=== PATIENT | female | born 1945 | race Caucasian/White ===

== ENCOUNTER 2017-06-24 02:55 | Observation (INO) | payer MEDICARE, BC ==
[2017-06-24] MEDS ORDERED: DIAZEPAM INJ 10 MG/2 ML DISP.SYRIN IV ONE ×2 (03:29→05:13)
[2017-06-24] MEDS ORDERED: ONDANSETRON HCL INJ/PF 4 MG/2 ML SDV IV ONE (03:29)
--- NOTE | 2017-06-24 03:34 | ER Document Report ---
ED General - General Chief Complaint: Nausea/Vomiting/Diarrhea Stated Complaint: VOMITING/DIARRHEA Time Seen by Provider: 06/24/17 03:20 Notes: Patient is a 72-year-old female presents with complaints of vertigo. The complaints on the and was she says vomiting diarrhea. Patient says she has not had any diarrhea. She says she is not sure why diarrhea was mentioned. Patient denies recent fevers. She says around 6 PM she started noticing that she was getting dizzy. She says she feels like the room spinning around her. She says that she keeps her eyes closed she does okay. She said because of dizziness she feels very nauseous. She does admit that over the last week she has had episodes where she feels like there is a lot of pressure inside her ears. She says that when she turns her head to the right she becomes more dizzy. She denies any fevers. No abdominal pain. No chest pain. No shortness of breath. No focal weakness or numbness. She denies this ever happening in the past. No new medications other than gabapentin which she stopped about a week ago. She said she was weaned off of it. She was only originally on 100 mg twice a day. TRAVEL OUTSIDE OF THE [place] IN LAST 30 DAYS: No - Related Data Allergies/Adverse Reactions: No Known Allergies Allergy (Unverified 06/24/17 03:25) Past Medical History - Social History Smoking Status: Never Smoker Frequency of alcohol use: Occasional Drug Abuse: None Family History: Reviewed & Not Pertinent Review of Systems - Review of Systems Notes: My Normal Review Basic REVIEW OF SYSTEMS: CONSTITUTIONAL : Denies fever, chills, or sweats. Denies recent illness. EENT: Recent pressure in her ears. CARDIOVASCULAR: Denies chest pain. RESPIRATORY: Denies cough, cold, or chest congestion. Denies shortness of breath, difficulty breathing, or wheezing. GASTROINTESTINAL: Denies abdominal pain. Vomiting GENITOURINARY: Denies difficulty urinating, painful urination, burning, frequency, or blood in urine. MUSCULOSKELETAL: Denies neck or back pain or joint pain or swelling. SKIN: Denies rash or skin lesions. NEUROLOGICAL: Denies altered mental status or loss of consciousness. Denies headache. Denies weakness or paralysis or loss of use of either side. Denies problems with gait or speech. Denies sensory or motor loss. Dizziness. ALL OTHER SYSTEMS REVIEWED AND NEGATIVE. Physical Exam - Vital signs Vitals: Temp Pulse Resp BP Pulse Ox 97.3 F 71 20 141/52 H 95 06/24/17 03:03 06/24/17 03:03 06/24/17 03:03 06/24/17 03:03 06/24/17 03:03 - Notes Notes: General Appearance: Well nourished, alert, cooperative, no acute distress, no obvious discomfort. Patient sitting in bed keep her eyes closed and trying not to move her head due to the significant dizziness or causes. Vitals: reviewed, See vital signs table. Head: no swelling or tenderness to the head Eyes: PERRL, EOMI, Conjuctiva clear Mouth: No decreasd moisture Throat: No tonsillar inflammation, No airway obstruction, No lymphadenopathy Neck: Supple, no neck tenderness, No thyromegaly Lungs: No wheezing, No rales, No rhonci, No accessory muscle use, good air exchange bilaterally. Heart: Normal rate, Regular rythm, No murmur, no rub Abdomen: Normal BS, soft, No rigidity, No abdominal tenderness, No guarding, no rebound, no abdominal masses, no organomegaly Extremities: strength 5/5 in all extremities, good pulses in all extremities, no swelling or tenderness in the extremities, no edema. Skin: warm, dry, appropriate color, no rash Neuro: speech clear, oriented x 3, normal affect, responds appropriately to questions. Coronation of movement. Good geriatric care manager strength bilaterally. Good strength with plantar dorsiflexion against resistance. Normal distal sensation. Patient opens her eyes she has significant horizontal nystagmus. No vertical nystagmus. When patient turns her head to the left she does not reproduce any dizziness. When she turns her head to the right she has significant vertigo type dizziness. Course - Re-evaluation Re-evalutation: 06/24/17 04:17 Patient's vertigo slowly improving but not yet gone. I will give her a dose of meclizine as well to see if this helps more. 06/24/17 06:01 Patient's vertigo has improved to the point where she can actually open her eyes ; however, she still cannot sit up in bed and cannot turn her head to the right without immediately becoming very dizzy and becoming very nauseous. She is unable to get out of bed and therefore is not safe to go home and she will not be able to walk very good around without falling and potentially hurting herself. This and her history I strongly suspect that this is peripheral vertigo; however, I did obtain CT scan because tending to go on despite treatment. CT scan does not show any concerning findings. I did speak with Dr. Kidd, hospitalist. He says he will pass on patient's information to the daytime team for admission. Dictation of this chart was performed using voice recognition software; therefore, there may be some unintended grammatical errors. - Vital Signs Vital signs: Temp Pulse Resp BP Pulse Ox 97.3 F 71 15 141/64 H 94 06/24/17 03:03 06/24/17 03:03 06/24/17 04:01 06/24/17 04:01 06/24/17 04:01 - Laboratory Result Diagrams: 06/24/17 02:25 06/24/17 02:25 Laboratory results interpreted by me: 06/24/17 02:25 Sodium 146.4 H Glucose 176 H Discharge - Discharge Clinical Impression: Vertigo Condition: Stable Admitting Provider: Hospitalist Unit Admitted: Telemetry
[2017-06-24 03:36] LABS: ABSOLUTE EOSINOPHILS # (AUTO) 0.2 10^3/uL (0.0-0.6); ABSOLUTE LYMPHOCYTES (AUTO) 2.8 10^3/uL (0.5-4.7); ABSOLUTE MONOCYTES (AUTO) 0.6 10^3/uL (0.1-1.4); ABSOLUTE NEUT (AUTO) 6.6 10^3/uL (1.7-8.2); BASOPHILS % (AUTO) 0.5 % (0-2); EOSINOPHILS % (AUTO) 1.5 % (0-6); HEMATOCRIT 41.8 % (36.0-47.0); HEMOGLOBIN 14.2 g/dL (12.0-15.5); LYMPHOCYTES % (AUTO) 27.3 % (13-45); MEAN CORPUSCULAR HEMOGLOBIN 30.2 pg (27.0-33.4); MEAN CORPUSCULAR VOLUME 89 fl (80-97); MONOCYTES % (AUTO) 5.5 % (3-13); PLATELET COUNT 319 10^3/uL (150-450); RED BLOOD COUNT 4.71 10^6/uL (3.72-5.28); RED CELL DISTRIBUTION WIDTH 12.6 % (11.5-14.0); SEGMENTED NEUTROPHILS % (AUTO) 65.2 % (42-78); TOTAL CELLS COUNTED % (AUTO) 100 %; WHITE BLOOD COUNT 10.1 10^3/uL (4.0-10.5)
[2017-06-24 04:13] LABS: ANION GAP 16 (5-19); BLOOD UREA NITROGEN 20 mg/dL (7-20); CALCIUM 9.7 mg/dL (8.4-10.2); CARBON DIOXIDE 27 mmol/L (22-30); CHLORIDE 103 mmol/L (98-107); GLUCOSE 176 mg/dL (75-110); POTASSIUM 4.2 mmol/L (3.6-5.0); SODIUM 146.4 mmol/L (137-145)
[2017-06-24] MEDS ORDERED: MECLIZINE HCL 25 MG TABLET PO ONE (04:17)
--- NOTE | 2017-06-24 05:58 | RADIOLOGY REPORT (SQ) ---
EXAM DESCRIPTION: CT HEAD WITHOUT IV CONTRAST CLINICAL HISTORY: 72 years Female, vertigo COMPARISON: None. TECHNIQUE: No contrast. Coronal and sagittal reformat. This exam was performed according to our departmental dose-optimization program, which includes automated exposure control, adjustment of the mA and/or kV according to patient size and/or use of iterative reconstruction technique. FINDINGS: No hemorrhage or infarct. No mass, mass effect, or midline shift. Moderate heterogeneous white matter, mild cerebral volume loss, atherosclerosis. Brain and extra-axial structures appear otherwise intact. IMPRESSION: Heterogeneous white matter; differential diagnosis includes small vessel white matter ischemic disease, other white matter demyelinative processes, and malignancy. Recommend MRI of the brain or contrast CT of the head.
[2017-06-24] MEDS ORDERED: MAGNESIUM HYDROXIDE SUSP 30 ML UDCUP PO PRN (07:17)
[2017-06-24] MEDS ORDERED: ZOLPIDEM TARTRATE 5 MG TABLET PO PRN (07:17)
[2017-06-24] MEDS: ONDANSETRON HCL INJ/PF 4 MG/2 ML SDV IV PRN (08:10)
--- NOTE | 2017-06-24 08:24 | PDOC H&P ---
History of Present Illness Admission Date/PCP: 06/24/17 06:15 GILLES BORJA MD Patient complains of: Dizziness, nausea and vomiting History of Present Illness: JOSE EPSTEIN is a 72 year old female who presents with complaints of vertigo. The dizziness was accompanied by nausea and vomiting. Patient denies recent fevers. She says around 6 PM last evening she started noticing that she was getting dizzy. She says she feels like the room spinning around her. She says that she keeps her eyes closed she does okay. She said because of dizziness she feels very nauseous. She does admit that over the last week she has had episodes where she feels like there is a lot of pressure inside her ears. She says that when she turns her head to the right she becomes more dizzy. She denies any fevers. No abdominal pain. No chest pain. No shortness of breath. No focal weakness or numbness. She denies this ever happening in the past. No new medications other than gabapentin which she stopped about a week ago. She said she was weaned off of it. She was only originally on 100 mg twice a day. Past Medical History Cardiac Medical History: Reports: Hyperlipidema, Hypertension Pulmonary Medical History: Reports: None EENT Medical History: Reports: None Neurological Medical History: Reports: None Endocrine Medical History: Reports: None GI Medical History: Reports: Gastroesophageal Reflux Disease Musculoskeltal Medical History: Reports: None Skin Medical History: Reports: None Psychiatric Medical History: Reports: None Traumatic Medical History: Reports: None Infectious Medical History: Reports: None Past Surgical History Past Surgical History: Reports: Other - breast biopsy Social History Information Source: Patient Lives with: Family Smoking Status: Never Smoker Frequency of Alcohol Use: Social Hx Recreational Drug Use: No Hx Prescription Drug Abuse: No - Advance Directive Resuscitation Status: Full Code Family History Family History: Hypertension Parental Family History Reviewed: Yes Children Family History Reviewed: Yes Sibling(s) Family History Reviewed.: Yes Medication/Allergy Allergies/Adverse Reactions: No Known Allergies Allergy (Unverified 06/24/17 03:25) Review of Systems Constitutional: ABSENT: chills, fever(s), headache(s), weight gain, weight loss Eyes: ABSENT: visual disturbances Ears: ABSENT: hearing changes Nose, Mouth, and Throat: PRESENT: vertigo Cardiovascular: ABSENT: chest pain, dyspnea on exertion, edema, orthropnea, palpitations Respiratory: ABSENT: cough, hemoptysis Gastrointestinal: ABSENT: abdominal pain, constipation, diarrhea, hematemesis, hematochezia, nausea, vomiting Genitourinary: ABSENT: dysuria, hematuria Musculoskeletal: ABSENT: joint swelling Integumentary: ABSENT: rash, wounds Neurological: ABSENT: abnormal gait, abnormal speech, confusion, dizziness, focal weakness, syncope Psychiatric: ABSENT: anxiety, depression, homidical ideation, suicidal ideation Endocrine: ABSENT: cold intolerance, heat intolerance, polydipsia, polyuria Hematologic/Lymphatic: ABSENT: easy bleeding, easy bruising Physical Exam Vital Signs: Temp Pulse Resp BP Pulse Ox 97.3 F 71 14 151/72 H 95 06/24/17 03:03 06/24/17 03:03 06/24/17 07:00 06/24/17 05:01 06/24/17 07:00 General appearance: PRESENT: no acute distress, obese, well-developed, well- nourished Head exam: PRESENT: atraumatic, normocephalic Eye exam: PRESENT: conjunctiva pink, EOMI, PERRLA. ABSENT: scleral icterus Ear exam: PRESENT: normal external ear exam Mouth exam: PRESENT: moist, tongue midline Neck exam: ABSENT: carotid bruit, JVD, lymphadenopathy, thyromegaly Respiratory exam: PRESENT: clear to auscultation lana, symmetrical, unlabored. ABSENT: rales, rhonchi, wheezes Cardiovascular exam: PRESENT: RRR. ABSENT: diastolic murmur, rubs, systolic murmur Pulses: PRESENT: normal dorsalis pedis pul Vascular exam: PRESENT: normal capillary refill GI/Abdominal exam: PRESENT: normal bowel sounds, soft. ABSENT: distended, guarding, mass, organolmegaly, rebound, tenderness Rectal exam: PRESENT: deferred Extremities exam: PRESENT: full ROM. ABSENT: calf tenderness, clubbing, pedal edema Neurological exam: PRESENT: alert, awake, oriented to person, oriented to place , oriented to time, oriented to situation, CN II-XII grossly intact. ABSENT: motor sensory deficit Psychiatric exam: PRESENT: appropriate affect, normal mood. ABSENT: homicidal ideation, suicidal ideation Skin exam: PRESENT: dry, intact, warm. ABSENT: cyanosis, rash Results Impressions: Head CT 06/24/17 05:13 IMPRESSION: Heterogeneous white matter; differential diagnosis includes small vessel white matter ischemic disease, other white matter demyelinative processes, and malignancy. Recommend MRI of the brain or contrast CT of the head. Assessment & Plan - Diagnosis (1) Vertigo Is this a current diagnosis for this admission?: Yes Plan: Continue meclizine, zofran, and diazepam (2) Essential hypertension Is this a current diagnosis for this admission?: Yes Plan: Continue home medications (3) GERD (gastroesophageal reflux disease) Qualifiers: Esophagitis presence: without esophagitis Qualified Code(s): K21.9 - Gastro -esophageal reflux disease without esophagitis Is this a current diagnosis for this admission?: Yes Plan: Continue PPI - Time Time Spent: 30 to 50 Minutes Critical Time spent with patient: 15-24 minutes Medications reviewed and adjusted accordingly: Yes Anticipated discharge: Home Within: within 24 hours - Inpatient Certification Based on my medical assessment, after consideration of the patient's comorbidities, presenting symptoms, or acuity I expect that the services needed warrant INPATIENT care.: Yes I certify that my determination is in accordance with my understanding of Medicare's requirements for reasonable and necessary INPATIENT services [42 CFR 412.3e].: Yes Medical Necessity: Failure to Improve With Outpatient Therapy, Need Close Monitoring Due to Risk of Patient Decompensation
[2017-06-24] MEDS: ENOXAPARIN SODIUM INJ 40 MG/0.4 ML DISP.SYRIN SUBCUT SCH (09:05)
[2017-06-24] MEDS: ACETAMINOPHEN 325 MG TABLET PO PRN (17:56)
[2017-06-24] MEDS ORDERED: (PENDING PHARMACY ID) (Acetaminophen [Tylenol Extra Strength 500 Mg Tablet] 500 MG) PO PRN (19:48)
[2017-06-24] MEDS: MECLIZINE HCL 25 MG TABLET PO PRN (20:03)
[2017-06-24] MEDS: DIAZEPAM INJ 10 MG/2 ML DISP.SYRIN IV PRN (20:03)
[2017-06-24] MEDS: GABAPENTIN 100 MG CAPSULE PO SCH (21:30)
[2017-06-24] MEDS: METOPROLOL TARTRATE 50 MG TABLET PO SCH (21:30)
[2017-06-24] MEDS: DOXAZOSIN MESYLATE 2 MG TABLET PO SCH (21:30)
[2017-06-25 06:45] LABS: ANION GAP 12 (5-19); BLOOD UREA NITROGEN 12 mg/dL (7-20); CALCIUM 8.8 mg/dL (8.4-10.2); CARBON DIOXIDE 25 mmol/L (22-30); CHLORIDE 110 mmol/L (98-107); GLUCOSE 91 mg/dL (75-110); POTASSIUM 3.8 mmol/L (3.6-5.0); SODIUM 146.9 mmol/L (137-145)
[2017-06-25] MEDS: GABAPENTIN 100 MG CAPSULE PO SCH ×3 (07:14→21:51)
[2017-06-25] MEDS ORDERED: (PENDING PHARMACY ID) (Nifedipine [Nifedipine Er] 60 MG) PO SCH (10:00)
[2017-06-25] MEDS: CALCIUM CARBONATE 500 MG TABLET PO SCH (11:07)
[2017-06-25] MEDS: NIFEDIPINE 30 MG TAB.ER.24 PO SCH (11:08)
[2017-06-25] MEDS: METOPROLOL TARTRATE 50 MG TABLET PO SCH ×2 (11:09→21:48)
[2017-06-25] MEDS: LOSARTAN POTASSIUM 50 MG TABLET PO SCH (11:10)
[2017-06-25] MEDS: ENOXAPARIN SODIUM INJ 40 MG/0.4 ML DISP.SYRIN SUBCUT SCH (11:11)
[2017-06-25] MEDS: DIAZEPAM INJ 10 MG/2 ML DISP.SYRIN IV PRN (11:11)
[2017-06-25] MEDS: FUROSEMIDE 20 MG TABLET PO SCH (11:12)
--- NOTE | 2017-06-25 14:33 | PDOC PROGRESS REPORT ---
Subjective Progress Note for:: 06/25/17 Subjective:: Patient is seen resting in bed. She is awake, alert and oriented 3. She states she feels much better than she did yesterday. She has had no further vomiting. She continues to have dizziness and difficulty ambulating. States the present time she has a mild headache. She is able to open her eyes without prompting her symptoms of vertigo. She denies any nausea, vomiting or abdominal pain at the present time. She denies any other myalgias or arthralgias. Remaining review of systems are negative. Reason For Visit: VERTIGO Physical Exam Vital Signs: Temp Pulse Resp BP Pulse Ox 98.6 F 67 16 131/48 H 94 06/25/17 11:06 06/25/17 11:06 06/25/17 11:06 06/25/17 11:06 06/25/17 11:06 Intake & Output 06/24/17 06/25/17 06/26/17 06:59 06:59 06:59 Intake Total 1847 Output Total 1100 Balance 747 Weight 86.4 kg General appearance: PRESENT: no acute distress, well-developed, well-nourished Head exam: PRESENT: atraumatic, normocephalic Eye exam: PRESENT: conjunctiva pink, EOMI, PERRLA. ABSENT: scleral icterus Ear exam: PRESENT: normal external ear exam Mouth exam: PRESENT: moist, tongue midline Neck exam: ABSENT: carotid bruit, JVD, lymphadenopathy, thyromegaly Respiratory exam: PRESENT: clear to auscultation lana. ABSENT: rales, rhonchi, wheezes Cardiovascular exam: PRESENT: RRR. ABSENT: diastolic murmur, rubs, systolic murmur Pulses: PRESENT: normal dorsalis pedis pul GI/Abdominal exam: PRESENT: normal bowel sounds, soft. ABSENT: distended, guarding, mass, organolmegaly, rebound, tenderness Rectal exam: PRESENT: deferred Extremities exam: PRESENT: full ROM. ABSENT: calf tenderness, clubbing, pedal edema Neurological exam: PRESENT: alert, awake, oriented to person, oriented to place , oriented to time, oriented to situation, CN II-XII grossly intact. ABSENT: motor sensory deficit Psychiatric exam: PRESENT: appropriate affect, normal mood. ABSENT: homicidal ideation, suicidal ideation Skin exam: PRESENT: dry, intact, warm. ABSENT: cyanosis, rash Results Laboratory Results: 06/25/17 05:23 06/25/17 05:23 Sodium 146.9 H Potassium 3.8 Chloride 110 H Carbon Dioxide 25 Anion Gap 12 BUN 12 Creatinine 0.70 Est GFR ( Amer) > 60 Est GFR (Non-Af Amer) > 60 Glucose 91 Calcium 8.8 Impressions: Head CT 06/24/17 05:13 IMPRESSION: Heterogeneous white matter; differential diagnosis includes small vessel white matter ischemic disease, other white matter demyelinative processes, and malignancy. Recommend MRI of the brain or contrast CT of the head. Assessment & Plan - Diagnosis (1) Vertigo Is this a current diagnosis for this admission?: Yes Plan: Continue meclizine, zofran, and diazepam (2) Essential hypertension Is this a current diagnosis for this admission?: Yes Plan: Continue home medications (3) GERD (gastroesophageal reflux disease) Qualifiers: Esophagitis presence: without esophagitis Qualified Code(s): K21.9 - Gastro -esophageal reflux disease without esophagitis Is this a current diagnosis for this admission?: Yes Plan: Continue PPI - Time Time Spent with patient: 25-34 minutes Total Critical Time (Minutes): 15 Medications reviewed and adjusted accordingly: Yes Anticipated discharge: Home Within: within 24 hours - Inpatient Certification Based on my medical assessment, after consideration of the patient's comorbidities, presenting symptoms, or acuity I expect that the services needed warrant INPATIENT care.: Yes I certify that my determination is in accordance with my understanding of Medicare's requirements for reasonable and necessary INPATIENT services [42 CFR 412.3e].: Yes Medical Necessity: Failure to Improve With Outpatient Therapy, Risk of Complication if Not Cared For in Hospital
[2017-06-25] MEDS: DOXAZOSIN MESYLATE 2 MG TABLET PO SCH (21:48)
[2017-06-25] MEDS: SIMVASTATIN 10 MG TABLET PO SCH (21:49)
[2017-06-25] MEDS: ONDANSETRON HCL INJ/PF 4 MG/2 ML SDV IV PRN (21:49)
[2017-06-26] MEDS: LANSOPRAZOLE 15 MG TAB.RAP.DR PO SCH (05:23)
[2017-06-26] MEDS: NORMAL SALINE 1000 ML 1,000 ML IV PRN (05:23)
[2017-06-26] MEDS: ACETAMINOPHEN 325 MG TABLET PO PRN (05:24)
[2017-06-26] MEDS: GABAPENTIN 100 MG CAPSULE PO SCH ×3 (05:26→21:10)
[2017-06-26] MEDS: ENOXAPARIN SODIUM INJ 40 MG/0.4 ML DISP.SYRIN SUBCUT SCH (09:36)
[2017-06-26] MEDS: CETIRIZINE 10 MG TABLET PO SCH (09:36)
[2017-06-26] MEDS: CYANOCOBALAMIN (VITAMIN B-12) 1,000 MCG TABLET PO SCH (09:36)
[2017-06-26] MEDS: FLUTICASONE NASAL SPRAY 50 MCG/SPRY 120 SPRAY/16 GM NASL SCH (09:36)
[2017-06-26] MEDS: CALCIUM CARBONATE 500 MG TABLET PO SCH (09:36)
[2017-06-26] MEDS: METOPROLOL TARTRATE 50 MG TABLET PO SCH ×2 (09:36→21:10)
[2017-06-26] MEDS: LOSARTAN POTASSIUM 50 MG TABLET PO SCH (09:36)
[2017-06-26] MEDS: NIFEDIPINE 30 MG TAB.ER.24 PO SCH (09:36)
[2017-06-26] MEDS: FUROSEMIDE 20 MG TABLET PO SCH (09:36)
[2017-06-26] MEDS ORDERED: (PENDING PHARMACY ID) (Cyanocobalamin (Vitamin B-12) [Vitamin B-12] 2,000 MCG) PO SCH (10:00)
--- NOTE | 2017-06-26 16:12 | PDOC PROGRESS REPORT ---
Subjective Progress Note for:: 06/26/17 Subjective:: 72-year-old female with past medical history of GERD Hypertension Hyperlipidemia She presented to the hospital on June 24 with vertigo nausea and vomiting. The patient reported a sensation of the room spinning around her as well as a pressure in her ears. She became more dizzy on turning her head to the right. She was started on meclizine and Zofran and Valium. Her symptoms are gradually improving Reason For Visit: VERTIGO Physical Exam Vital Signs: Temp Pulse Resp BP Pulse Ox 98.6 F 57 L 16 140/55 H 96 06/26/17 04:29 06/26/17 07:00 06/26/17 04:29 06/26/17 04:29 06/26/17 04:29 Intake & Output 06/25/17 06/26/17 06/27/17 06:59 06:59 06:59 Intake Total 1847 3012 Output Total 1100 3000 Balance 747 12 Weight 86.4 kg 84.2 kg General appearance: PRESENT: no acute distress Head exam: PRESENT: normocephalic Eye exam: PRESENT: other - R corneal opacification Ear exam: PRESENT: normal external ear exam Mouth exam: PRESENT: moist Neck exam: ABSENT: tracheal deviation Respiratory exam: PRESENT: symmetrical, unlabored. ABSENT: crackles Cardiovascular exam: PRESENT: RRR GI/Abdominal exam: PRESENT: normal bowel sounds, soft. ABSENT: tenderness Rectal exam: PRESENT: deferred Extremities exam: ABSENT: pedal edema Neurological exam: PRESENT: alert, awake, oriented to person, oriented to place , oriented to time Psychiatric exam: PRESENT: appropriate affect Results Laboratory Results: 06/25/17 05:23 Impressions: Head CT 06/24/17 05:13 IMPRESSION: Heterogeneous white matter; differential diagnosis includes small vessel white matter ischemic disease, other white matter demyelinative processes, and malignancy. Recommend MRI of the brain or contrast CT of the head. Assessment & Plan - Diagnosis (1) Essential hypertension Is this a current diagnosis for this admission?: Yes Plan: Continue Metoprolol and Losartan and Nifedipine and Lasix (2) GERD (gastroesophageal reflux disease) Qualifiers: Esophagitis presence: without esophagitis Qualified Code(s): K21.9 - Gastro -esophageal reflux disease without esophagitis Is this a current diagnosis for this admission?: Yes Plan: Lansoprazole (3) Vertigo Is this a current diagnosis for this admission?: Yes Plan: Meclizine and Valium prn - Time Time Spent with patient: 35 or more minutes
[2017-06-26] MEDS: DOXAZOSIN MESYLATE 2 MG TABLET PO SCH (21:09)
[2017-06-26] MEDS: MECLIZINE HCL 25 MG TABLET PO PRN (21:11)
[2017-06-26] MEDS: SIMVASTATIN 10 MG TABLET PO SCH (21:11)
[2017-06-27] MEDS: NORMAL SALINE 1000 ML 1,000 ML IV PRN (05:39)
[2017-06-27] MEDS: LANSOPRAZOLE 15 MG TAB.RAP.DR PO SCH (05:39)
[2017-06-27] MEDS: GABAPENTIN 100 MG CAPSULE PO SCH ×3 (05:41→21:42)
[2017-06-27] MEDS: CETIRIZINE 10 MG TABLET PO SCH (09:57)
[2017-06-27] MEDS: CYANOCOBALAMIN (VITAMIN B-12) 1,000 MCG TABLET PO SCH (09:57)
[2017-06-27] MEDS: CALCIUM CARBONATE 500 MG TABLET PO SCH (09:57)
[2017-06-27] MEDS: METOPROLOL TARTRATE 50 MG TABLET PO SCH (09:57)
[2017-06-27] MEDS: NIFEDIPINE 30 MG TAB.ER.24 PO SCH (09:57)
[2017-06-27] MEDS: FUROSEMIDE 20 MG TABLET PO SCH (09:57)
[2017-06-27] MEDS: LOSARTAN POTASSIUM 50 MG TABLET PO SCH (09:57)
[2017-06-27] MEDS: ENOXAPARIN SODIUM INJ 40 MG/0.4 ML DISP.SYRIN SUBCUT SCH (09:58)
[2017-06-27] MEDS: FLUTICASONE NASAL SPRAY 50 MCG/SPRY 120 SPRAY/16 GM NASL SCH (09:58)
[2017-06-27] MEDS ORDERED: METOPROLOL TARTRATE 50 MG TABLET PO SCH ×2 (14:02→22:00)
[2017-06-27] MEDS ORDERED: ONDANSETRON HCL INJ/PF 4 MG/2 ML SDV IV PRN (15:00)
--- NOTE | 2017-06-27 16:37 | PDOC PROGRESS REPORT ---
Subjective Progress Note for:: 06/27/17 Subjective:: 72-year-old female with past medical history of GERD Hypertension Hyperlipidemia She presented to the hospital on June 24 with vertigo nausea and vomiting. The patient reported a sensation of the room spinning around her as well as a pressure in her ears. She became more dizzy on turning her head to the right. She was started on meclizine and Zofran and Valium. Her symptoms are gradually improving. Most likely due to labyrinthitis- had rhonorrhea and sore throat preceding this. Feels much better thoigh still unsteady on her feet. Will need PT EKG shows bradycardia and first dgree AV block and missed beats. Metoprolol dose reduced from 50mg BID to 25mg BID- continue to monitor closely. Reason For Visit: VERTIGO Physical Exam Vital Signs: Temp Pulse Resp BP Pulse Ox 98.1 F 66 16 149/79 H 94 06/27/17 11:18 06/27/17 14:00 06/27/17 11:18 06/27/17 11:18 06/27/17 11:18 Intake & Output 06/26/17 06/27/17 06/28/17 06:59 06:59 06:59 Intake Total 3012 2700 Output Total 3000 3300 Balance 12 -600 Weight 84.2 kg 84.1 kg General appearance: PRESENT: no acute distress Head exam: PRESENT: normocephalic Eye exam: PRESENT: other - R corneal opacity Mouth exam: PRESENT: moist Neck exam: ABSENT: tracheal deviation Respiratory exam: PRESENT: symmetrical, unlabored. ABSENT: wheezes Cardiovascular exam: PRESENT: RRR GI/Abdominal exam: PRESENT: normal bowel sounds, soft. ABSENT: tenderness Rectal exam: PRESENT: deferred Extremities exam: ABSENT: pedal edema Neurological exam: PRESENT: alert, awake, oriented to person, oriented to place , oriented to time, oriented to situation Psychiatric exam: PRESENT: appropriate affect Results Laboratory Results: 06/25/17 05:23 Impressions: Head CT 06/24/17 05:13 IMPRESSION: Heterogeneous white matter; differential diagnosis includes small vessel white matter ischemic disease, other white matter demyelinative processes, and malignancy. Recommend MRI of the brain or contrast CT of the head. Assessment & Plan - Diagnosis (1) Essential hypertension Is this a current diagnosis for this admission?: Yes Plan: Continue Metoprolol (dose lowered) Losartan and Nifedipine and Lasix. IV fluids stopped. (2) GERD (gastroesophageal reflux disease) Qualifiers: Esophagitis presence: without esophagitis Qualified Code(s): K21.9 - Gastro -esophageal reflux disease without esophagitis Is this a current diagnosis for this admission?: Yes Plan: Lansoprazole (3) Vertigo Is this a current diagnosis for this admission?: Yes Plan: Meclizine and Valium prn - Time Time Spent with patient: 35 or more minutes
--- NOTE | 2017-06-27 19:27 | EKG REPORT ---
SEVERITY:- ABNORMAL ECG - SINUS RHYTHM FIRST DEGREE AV BLOCK : Confirmed by: Vasu Blas 27-Jun-2017 19:25:38
[2017-06-27] MEDS: DOXAZOSIN MESYLATE 2 MG TABLET PO SCH (21:46)
[2017-06-27] MEDS: MECLIZINE HCL 25 MG TABLET PO PRN (21:46)
[2017-06-27] MEDS: METOPROLOL TARTRATE 25 MG TABLET PO SCH (21:47)
[2017-06-27] MEDS: SIMVASTATIN 10 MG TABLET PO SCH (21:47)
[2017-06-28] MEDS: LANSOPRAZOLE 15 MG TAB.RAP.DR PO SCH (05:40)
[2017-06-28] MEDS: GABAPENTIN 100 MG CAPSULE PO SCH ×3 (05:40→22:36)
[2017-06-28] MEDS: ENOXAPARIN SODIUM INJ 40 MG/0.4 ML DISP.SYRIN SUBCUT SCH (09:06)
[2017-06-28] MEDS: FLUTICASONE NASAL SPRAY 50 MCG/SPRY 120 SPRAY/16 GM NASL SCH (09:07)
[2017-06-28] MEDS: CALCIUM CARBONATE 500 MG TABLET PO SCH (09:07)
[2017-06-28] MEDS: CETIRIZINE 10 MG TABLET PO SCH (09:08)
[2017-06-28] MEDS: CYANOCOBALAMIN (VITAMIN B-12) 1,000 MCG TABLET PO SCH (09:08)
[2017-06-28] MEDS: LOSARTAN POTASSIUM 50 MG TABLET PO SCH (09:08)
[2017-06-28] MEDS: METOPROLOL TARTRATE 25 MG TABLET PO SCH ×2 (09:09→22:36)
[2017-06-28] MEDS: NIFEDIPINE 30 MG TAB.ER.24 PO SCH (09:10)
[2017-06-28] MEDS: FUROSEMIDE 40 MG TABLET PO SCH (09:10)
[2017-06-28] MEDS ORDERED: DIAZEPAM 2 MG TABLET PO PRN (14:07)
--- NOTE | 2017-06-28 16:06 | RADIOLOGY REPORT (SQ) ---
EXAM DESCRIPTION: CT HEAD WITH COMPLETED DATE/TIME: 06/28/2017 3:37 pm REASON FOR STUDY: better eval dizziness, per radiologist recs [id number] DIZZINESS AND GIDDINESS COMPARISON: CT brain 06/24/2017 TECHNIQUE: Axial images acquired through the brain with intravenous contrast. Images reviewed with b one, brain and subdural windows. Additional sagittal and coronal reconstructions were generated. Salome ges stored on PACS. All CT scanners at this facility use dose modulation, iterative reconstruction, and/or weight based d osing when appropriate to reduce radiation dose to as low as reasonably achievable (ALARA). [facility]: Dose Right [facility]: CareDose [facility]: Dose Right [facility]: Teradose 4D [facility]: [employer] CONTRAST TYPE AND DOSE: contrast/concentration: Isovue 370.00 mg/ml; Total Contrast Delivered: 50.0 ml; Total Saline Delivered: 55.0 ml RENAL FUNCTION: Creatinine 0.7 RADIATION DOSE: CT Rad equipment meets quality standard of care and radiation dose reduction techniq ues were employed. CTDIvol: 48.5 mGy. DLP: 904 mGy-cm.. LIMITATIONS: None. FINDINGS: VENTRICLES: Normal size and contour. CEREBRUM: No abnormal brain parenchymal masses or enhancement. There is spotty bifrontal and biparietal small vessel ischemic change in the white matter, stable com pared to 06/24/2017. No acute intracranial hemorrhage, mass effect, or midline shift. No CT evidence of acute large srikanth tory ischemic change. CEREBELLUM: No masses. No hemorrhage. No alteration of density. No evidence for acute infarction. No enhancing lesions. EXTRA-AXIAL SPACES: No fluid collections. No enhancing lesions. ORBITS AND GLOBE: No intra- or extraconal masses. Normal contour of globe without masses. CALVARIUM: No fracture. PARANASAL SINUSES: No fluid or mucosal thickening. SOFT TISSUES: No mass or hematoma. OTHER: No other significant finding. IMPRESSION: Mild spotty bifrontal and biparietal white matter chronic small vessel ischemic change. No abnormal brain parenchymal masses or enhancement EVIDENCE OF ACUTE STROKE: NO. TECHNICAL DOCUMENTATION: JOB ID: [id number] Quality ID # [id number]: Final reports with documentation of one or more dose reduction techniques (e.g., Au tomated exposure control, adjustment of the mA and/or kV according to patient size, use of iterative reconstruction technique) 2010 [employer]- All Rights Reserved Reading location - IP/workstation name: [email or web address]
--- NOTE | 2017-06-28 19:44 | PDOC PROGRESS REPORT ---
Subjective Progress Note for:: 06/28/17 Subjective:: Patient's dizziness is improving. Her current dose of Valium made her too lethargic. She is willing to remain in the hospital for brain imaging as recommended by radiologist to evaluate for mass. No chest pain or difficulty breathing. Eating and drinking well. Doing well with therapy. Reason For Visit: VERTIGO Physical Exam Vital Signs: Temp Pulse Resp BP Pulse Ox 98.3 F 76 16 121/57 L 95 06/28/17 15:09 06/28/17 15:09 06/28/17 15:09 06/28/17 15:09 06/28/17 15:09 Intake & Output 06/27/17 06/28/17 06/29/17 06:59 06:59 06:59 Intake Total 2700 2444 840 Output Total 3300 3040 2400 Balance -600 -596 -1560 Weight 84.1 kg 85 kg General appearance: PRESENT: no acute distress, cooperative Head exam: PRESENT: atraumatic, normocephalic Eye exam: PRESENT: conjunctiva pink, EOMI. ABSENT: scleral icterus Mouth exam: PRESENT: moist, neck supple Respiratory exam: PRESENT: clear to auscultation lana, unlabored. ABSENT: rales , rhonchi, wheezes Cardiovascular exam: PRESENT: RRR, systolic murmur Pulses: PRESENT: normal radial pulses Vascular exam: PRESENT: normal capillary refill GI/Abdominal exam: PRESENT: normal bowel sounds, soft. ABSENT: distended, guarding, tenderness Extremities exam: ABSENT: pedal edema Musculoskeletal exam: PRESENT: normal inspection Neurological exam: PRESENT: alert, awake, oriented to person, oriented to place , oriented to time, CN II-XII grossly intact, other - Nonfocal neurologic exam Psychiatric exam: PRESENT: appropriate affect. ABSENT: anxious Skin exam: PRESENT: dry, intact, warm Results Laboratory Results: 06/25/17 05:23 Impressions: Head CT 06/28/17 00:00 IMPRESSION: Mild spotty bifrontal and biparietal white matter chronic small vessel ischemic change. No abnormal brain parenchymal masses or enhancement EVIDENCE OF ACUTE STROKE: NO. Assessment & Plan - Diagnosis (1) Essential hypertension Is this a current diagnosis for this admission?: Yes Plan: Stable, continue current care (2) GERD (gastroesophageal reflux disease) Qualifiers: Esophagitis presence: without esophagitis Qualified Code(s): K21.9 - Gastro -esophageal reflux disease without esophagitis Is this a current diagnosis for this admission?: Yes Plan: No GERD complications, no medication changes to be made today (3) Vertigo Is this a current diagnosis for this admission?: Yes Plan: Patient is feeling better. We will continue meclizine and physical therapy. I have decreased her Valium dose to 2 mg p.o. is effective without making her too groggy. Also per radiology recommendations I have ordered a CT scan of the head with contrast to evaluate for mass or other etiology of the vertigo. There is no evidence of stroke or mass. - Time Time Spent with patient: 15-24 minutes Medications reviewed and adjusted accordingly: Yes - Inpatient Certification Based on my medical assessment, after consideration of the patient's comorbidities, presenting symptoms, or acuity I expect that the services needed warrant INPATIENT care.: Yes I certify that my determination is in accordance with my understanding of Medicare's requirements for reasonable and necessary INPATIENT services [42 CFR 412.3e].: Yes Medical Necessity: Risk of Complication if Not Cared For in Hospital
[2017-06-28] MEDS: DOXAZOSIN MESYLATE 2 MG TABLET PO SCH (22:29)
[2017-06-28] MEDS: SIMVASTATIN 10 MG TABLET PO SCH (22:30)
[2017-06-28] MEDS: MECLIZINE HCL 25 MG TABLET PO PRN (22:35)
[2017-06-29] MEDS: LANSOPRAZOLE 15 MG TAB.RAP.DR PO SCH (05:22)
[2017-06-29] MEDS: GABAPENTIN 100 MG CAPSULE PO SCH (05:23)
[2017-06-29 09:56] VITALS: BP 132/50
[2017-06-29] MEDS: CETIRIZINE 10 MG TABLET PO SCH (10:21)
[2017-06-29] MEDS: ENOXAPARIN SODIUM INJ 40 MG/0.4 ML DISP.SYRIN SUBCUT SCH (10:21)
[2017-06-29] MEDS: FLUTICASONE NASAL SPRAY 50 MCG/SPRY 120 SPRAY/16 GM NASL SCH (10:21)
[2017-06-29] MEDS: METOPROLOL TARTRATE 25 MG TABLET PO SCH (10:21)
[2017-06-29] MEDS: NIFEDIPINE 30 MG TAB.ER.24 PO SCH (10:21)
[2017-06-29] MEDS: CYANOCOBALAMIN (VITAMIN B-12) 1,000 MCG TABLET PO SCH (10:21)
[2017-06-29] MEDS: FUROSEMIDE 40 MG TABLET PO SCH (10:21)
[2017-06-29] MEDS: CALCIUM CARBONATE 500 MG TABLET PO SCH (10:21)
[2017-06-29] MEDS: LOSARTAN POTASSIUM 50 MG TABLET PO SCH (10:21)
--- NOTE | 2017-06-29 16:56 | PDOC DISCHARGE SUMMARY ---
General - Admit/Disc Date/PCP Admission Date/Primary Care Provider: 06/24/17 06:15 GILLES BORJA MD Discharge Date: 06/29/17 - Discharge Diagnosis (1) Vertigo Is this a current diagnosis for this admission?: Yes Summary: Patient had CT scan which had a differential diagnosis that included chronic small vessel ischemic changes versus malignancy. Radiologist recommended MRI or CT with contrast. CT with contrast was performed which showed no mass, no stroke, did show small vessel chronic ischemic changes. No etiology for vertigo found. She may have labrynthitis. She improved with as needed meclizine and with physical therapy. She is discharged with 25 mg p.o. every 8 hours as needed meclizine, Valium 2 mg p.o. every 8 hours as needed nausea or dizziness. She is also discharged with plan for outpatient vestibular physical therapy. Note patient has allergic rhinitis and sinus congestion, this is much improved with her knees and so she is discharged with a Flonase prescription. If his congestion was also helpful for her vertigo. She is feeling significantly better on discharge. (2) Essential hypertension Is this a current diagnosis for this admission?: Yes Summary: Patient was continued on her antihypertensives. Her blood pressure was well controlled and she was discharged to restart her own medications. (3) GERD (gastroesophageal reflux disease) Is this a current diagnosis for this admission?: Yes Summary: Stable during the hospitalization, her home medications restarted on discharge - Additional Information Resuscitation Status: Full Code Discharge Diet: As Tolerated, Cardiac Discharge Activity: Balance Activity w/Rest, No Driving, Other Prescriptions: Diazepam [Valium 2 mg Tablet] 2 mg PO Q8HP PRN 10 Days #10 tablet PRN Reason: Dizziness Fluticasone Propionate [Flonase Nasal [place] 50 Mcg/[place] 16 gm] 2 spray NASL DAILY 30 Days #1 spray.pump Meclizine HCl [Antivert 25 mg Tablet] 25 mg PO Q8HP PRN 10 Days #30 tablet PRN Reason: Dizziness Ondansetron HCl [Zofran 4 mg Tablet] 1 - 2 tab PO Q4H PRN #10 tablet PRN Reason: Home Medications: Acetaminophen [Tylenol Extra Strength 500 mg Tablet] 500 mg PO Q4HP PRN Calcium Carbonate [Calcium] 500 mg PO DAILY 06/24/17 Cyanocobalamin (Vitamin B-12) [Vitamin B-12] 2,000 mcg PO DAILY 06/24/17 Doxazosin Mesylate [Cardura 2 mg Tablet] 2 mg PO QHS 06/24/17 Furosemide [Lasix 20 mg Tablet] 40 mg PO DAILY 06/24/17 Gabapentin [Neurontin 100 mg Capsule] 100 mg PO Q8 06/24/17 Losartan Potassium [Cozaar 100 mg Tablet] 100 mg PO DAILY 06/24/17 Metoprolol Tartrate [Lopressor 50 mg Tablet] 50 mg PO BID 06/24/17 Nifedipine [Nifedipine ER] 60 mg PO DAILY 06/24/17 Omeprazole 20 mg PO DAILY 06/24/17 Simvastatin [Zocor 20 mg Tablet] 20 mg PO QHS 06/24/17 Diazepam [Valium 2 mg Tablet] 2 mg PO Q8HP PRN 10 Days #10 tablet 06/29/17 Fluticasone Propionate [Flonase Nasal [place] 50 Mcg/[place] 16 gm] 2 spray NASL DAILY 30 Days #1 spray.pump 06/29/17 Meclizine HCl [Antivert 25 mg Tablet] 25 mg PO Q8HP PRN 10 Days #30 tablet 06/29 Ondansetron HCl [Zofran 4 mg Tablet] 1 - 2 tab PO Q4H PRN #10 tablet 06/29/17 History of Present Illness Patient complains of: dizziness History of Present Illness: JOSE EPSTEIN is a 72 year old woman who presents with complaints of vertigo. The dizziness was accompanied by nausea and vomiting. Patient denies recent fevers. She says around 6 PM last evening she started noticing that she was getting dizzy. She says she feels like the room spinning around her. She says that she keeps her eyes closed she does okay. She said because of dizziness she feels very nauseous. She does admit that over the last week she has had episodes where she feels like there is a lot of pressure inside her ears. She says that when she turns her head to the right she becomes more dizzy. She denies any fevers. No abdominal pain. No chest pain. No shortness of breath. No focal weakness or numbness. She denies this ever happening in the past. No new medications other than gabapentin which she stopped about a week ago. She said she was weaned off of it. She was only originally on 100 mg twice a day. Hospital Course Hospital Course: Please see hospital course by problem list. Physical Exam Vital Signs: Temp Pulse Resp BP Pulse Ox 98.6 F 68 20 132/50 H 92 06/29/17 09:53 06/29/17 09:53 06/29/17 09:53 06/29/17 09:53 06/29/17 09:53 Intake & Output 06/28/17 06/29/17 06/30/17 06:59 06:59 06:59 Intake Total 2444 1206 Output Total 3040 2400 Balance -596 -1194 Weight 85 kg 83.7 kg General appearance: PRESENT: no acute distress, cooperative. ABSENT: hard of hearing Head exam: PRESENT: atraumatic, normocephalic Eye exam: PRESENT: EOMI Ear exam: PRESENT: normal external ear exam Mouth exam: PRESENT: moist Respiratory exam: PRESENT: clear to auscultation lana, unlabored. ABSENT: rales , rhonchi, wheezes Cardiovascular exam: PRESENT: RRR. ABSENT: systolic murmur Pulses: PRESENT: normal radial pulses GI/Abdominal exam: PRESENT: normal bowel sounds, soft. ABSENT: distended, guarding, tenderness Musculoskeletal exam: PRESENT: ambulatory Neurological exam: PRESENT: alert, awake, oriented to person, oriented to place , oriented to situation, CN II-XII grossly intact Psychiatric exam: PRESENT: appropriate affect. ABSENT: anxious Skin exam: PRESENT: dry, intact, warm Results Laboratory Results: 06/25/17 05:23 Impressions: Head CT 06/28/17 00:00 IMPRESSION: Mild spotty bifrontal and biparietal white matter chronic small vessel ischemic change. No abnormal brain parenchymal masses or enhancement EVIDENCE OF ACUTE STROKE: NO. Qualifiers - * PATIENT BEING DISCHARGED WITH ANY OF THE FOLLOWING DIAGNOSIS: No
== END 2017-06-29 10:00 | disposition home or self-care (01) ==
LOC: ER 02:55 → INTOOBSV 06:15 → EH 06:15 → 4W 11:18 → 4N 06-28 18:03
PROVIDERS: ADMIT Internal Medicine; ATTEND Internal Medicine
DX: R42 Dizziness and giddiness (principal); J30.9 Allergic rhinitis, unspecified; R09.81 Nasal congestion; I10 Essential (primary) hypertension; K21.9 Gastro-esophageal reflux disease without esophagitis; R11.2 Nausea with vomiting, unspecified; R51 Headache; H93.8X3 Other specified disorders of ear, bilateral; H17.89 Other corneal scars and opacities; J02.9 Acute pharyngitis, unspecified; R00.1 Bradycardia, unspecified; I44.0 Atrioventricular block, first degree; R26.81 Unsteadiness on feet; E78.5 Hyperlipidemia, unspecified; Z79.899 Other long term (current) drug therapy; Z82.49 Family history of ischemic heart disease and other diseases of the circulatory system
CPT/HCPCS: 96376; 99285; 96374; 36415 ×2; 85025; 80048 ×2; 70450; 70460; 93005; 93010; 97116; 97163; A9270 ×48; J3360 ×2; J1650 ×4; J2405 ×2; J7030 ×2; G0378; J3490